=== PATIENT | female | born 1955 | race Caucasian/White ===

== ENCOUNTER → 2017-05-13 20:25 | Outpatient (CLI) | payer OTHER | END | disposition home or self-care (01) | LOC: D.MAMMO 04-14 09:00 → D.US 04-14 13:00 → D.MAMMO 10:30 | DX: N64.4 Mastodynia (principal) ==

== ENCOUNTER 2019-10-30 14:00 | Outpatient (CLI) | payer OTHER | END 2019-10-30 15:00 | disposition home or self-care (01) | LOC: D.MAMMO 14:00 | PROVIDERS: ATTEND Family Medicine | DX: Z12.31 Encounter for screening mammogram for malignant neoplasm of breast (principal) ==